=== PATIENT | female | born 1985 | race Caucasian/White ===

== ENCOUNTER 2017-08-25 14:04 | Emergency (ER) | payer SELFPAY ==
[~2017-08-25] VITALS: Ht 162.6 cm; Wt 68.0 kg
[2017-08-25 14:13] VITALS: BP 124/64; PULSE 118; RESP 22; O2SAT 99
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
[2017-08-25] MEDS ORDERED: VIST50CA PO (15:43)
[2017-08-25] MEDS ORDERED: LORazepam 1 MG TAB PO ONE (15:45)
[2017-08-25 17:35] VITALS: BP 118/58; PULSE 95; RESP 17; O2SAT 100
== END 2017-08-25 17:39 | disposition home or self-care (01) ==
LOC: NEPD 14:04
DX: F43.0 Acute stress reaction (principal); F41.1 Generalized anxiety disorder; Z72.0 Tobacco use; Z86.59 Personal history of other mental and behavioral disorders; Z87.09 Personal history of other diseases of the respiratory system
CPT/HCPCS: 99283

== ENCOUNTER 2017-09-04 21:15 | Emergency (ER) | payer SELFPAY ==
[~2017-09-04] VITALS: Ht 167.6 cm; Wt 70.0 kg
[~2017-09-04 21:15] MED LIST: VIST50CA PO
[2017-09-04 21:37] VITALS: BP 159/84; PULSE 90; RESP 17; TEMP 98.6; O2SAT 95
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
[2017-09-04] MEDS ORDERED: MORPHINE SULFATE 4 MG/ML INJ IV PUSH ONE (21:45)
[2017-09-04] MEDS ORDERED: SODIUM CHLORIDE 0.9% FLUSH 10 ML FLUSH IVF PRN (21:45)
[2017-09-04] MEDS ORDERED: ONDANSETRON HCL 4 MG/2 ML VIAL IVP ONE (21:45)
[2017-09-04] MEDS ORDERED: SODIUM CHLOR 0.9% 1000 ML INJ 1,000 ML IV ONE (21:45)
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
[2017-09-04] MEDS ORDERED: KETOROLAC TROMETHAMINE 30 MG/ML (IVP) VIAL IV PUSH ONE (23:30)
[2017-09-04] MEDS ORDERED: IBUP800T23 PO (23:31)
[2017-09-05] MEDS ORDERED: diphenhydrAMINE HCL 50 MG/ML VIAL IV PUSH ONE (00:15)
[2017-09-05] MEDS ORDERED: ORPHENADRINE INJ 60 MG/2 ML AMP IM ONE (00:15)
[2017-09-05] MEDS ORDERED: IBUPROFEN 800 MG TAB PO ONE (06:45)
== END 2017-09-05 07:03 | disposition home or self-care (01) ==
LOC: NEPD 21:15
DX: S01.112A Laceration without foreign body of left eyelid and periocular area, initial encounter (principal); S01.511A Laceration without foreign body of lip, initial encounter; S05.12XA Contusion of eyeball and orbital tissues, left eye, initial encounter; F10.929 Alcohol use, unspecified with intoxication, unspecified; Z72.0 Tobacco use; Z79.899 Other long term (current) drug therapy; Z87.09 Personal history of other diseases of the respiratory system; Z86.59 Personal history of other mental and behavioral disorders; Y04.2XXA Assault by strike against or bumped into by another person, initial encounter
CPT/HCPCS: 12011; 70450; 70486; 80307; 84703; 96372; 96374; 96375; 99285; J1200; J1885; J2270; J2360; J2405; J7030

== ENCOUNTER 2018-03-26 13:15 | Emergency (ER) | payer SELFPAY ==
[~2018-03-26] VITALS: Ht 162.6 cm; Wt 76.0 kg
[~2018-03-26 13:15] MED LIST changes: +IBUP1TAB7 PO; -VIST50CA PO
[2018-03-26 13:24] VITALS: BP 138/87; PULSE 107; RESP 16; TEMP 98.7; O2SAT 96
== END 2018-03-26 16:55 | disposition left against medical advice (07) ==
LOC: PHED 13:15
DX: R10.9 Unspecified abdominal pain (principal); R11.2 Nausea with vomiting, unspecified; Z53.21 Procedure and treatment not carried out due to patient leaving prior to being seen by health care provider
CPT/HCPCS: 99281